=== PATIENT | male | born 1990 | race Caucasian/White ===

== ENCOUNTER 2017-07-09 10:13 | Emergency (ER) | payer OTHER ==
[~2017-07-09] VITALS: Ht 172.7 cm; Wt 110.0 kg
[2017-07-09 10:25] VITALS: BP 120/56; PULSE 83; RESP 16; TEMP 98.2; O2SAT 99
[2017-07-09 12:00] VITALS: O2SAT 96
[2017-07-09] MEDS ORDERED: SODIUM CHLOR 0.9% 1000 ML INJ 1,000 ML IV SCH (12:15)
[2017-07-09] MEDS ORDERED: ONDANSETRON HCL 4 MG/2 ML VIAL IVP ONE (12:15)
[2017-07-09] MEDS ORDERED: MORPHINE SULFATE 4 MG/ML INJ IV PUSH ONE (12:15)
--- NOTE | 2017-07-09 12:22 | PD ---
HPI Chief Complaint: Abdominal Pain Time Seen by Provider: 12:10 Travel History International Travel<30 days: No Contact w/Intl Traveler<30days: No Traveled to known affect area: No History of Present Illness HPI 26-year-old male presents to ED for evaluation of approximately 8 day history of intermittent, crampy right upper quadrant and right flank pain. Described as sharp, maximally 8/10. Accompanied by chills and mild nausea. Pain has begun to be more constant over the last 4 days. Patient denies decreased appetite, vomiting, changes in bowel habits. He states that he has had more frequent urination over the last few days. He denies hematuria or dysuria. He endorses history of cholecystectomy. He treated at home 7 days ago with a single 5 mg Percocet with no improvement of symptoms. He denies frequent alcohol use. Endorses occasionally smoking marijuana. PFSH Social History Tobacco Use: No Allergies-Medications (Allergen,Severity, Reaction): Coded Allergies: No Known Allergies (Unverified , 07/09/17) Review of Systems Except as stated in HPI: all other systems reviewed are Neg Physical Exam Narrative GENERAL: Well-nourished, well-developed obese white male in no acute distress. SKIN: Focused skin assessment warm/dry. HEAD: Normocephalic. EYES: No scleral icterus. No injection or drainage. NECK: Supple, trachea midline. No JVD or lymphadenopathy. CARDIOVASCULAR: Regular rate and rhythm without murmurs, gallops, or rubs. RESPIRATORY: Breath sounds clear and equal bilaterally. No accessory muscle use. GASTROINTESTINAL: Abdomen soft, non-tender, nondistended. Active bowel signs. [place] sign negative. Positive right upper flank tenderness to palpation. MUSCULOSKELETAL: No cyanosis, or edema. BACK: Nontender without obvious deformity. No CVA tenderness. Data Data Last Documented VS Vital Signs Date Time Temp Pulse Resp B/P (MAP) Pulse Ox O2 Delivery O2 Flow Rate FiO2 07/09/17 14:05 77 16 99 Room Air 07/09/17 10:25 98.2 120/56 (77) Orders Orders Complete Blood Count With Diff (07/09/17 11:27) Comprehensive Metabolic Panel (07/09/17 11:27) Urinalysis - C+S If Indicated (07/09/17 11:27) Iv Access Insert/Monitor (07/09/17 11:27) Oxygen Administration (3/13/18 11:27) Oximetry (07/09/17 11:27) Lipase (07/09/17 11:27) Ct Abd/Pel W Iv Contrast(Rout) (07/09/17 12:15) Morphine Inj (Morphine Inj) (07/09/17 12:15) Ondansetron Inj (Zofran Inj) (07/09/17 12:15) Sodium Chlor 0.9% 1000 Ml Inj (Ns 1000 M (07/09/17 12:15) Iohexol 350 Inj (Omnipaque 350 Inj) (07/09/17 13:45) Ed Discharge Order (07/09/17 14:45) Labs Laboratory Tests Test 07/09/17 11:55 07/09/17 12:01 White Blood Count 6.5 TH/MM3 Red Blood Count 5.14 MIL/MM3 Hemoglobin 15.4 GM/DL Hematocrit 44.5 % Mean Corpuscular Volume 86.6 FL Mean Corpuscular Hemoglobin 29.9 PG Mean Corpuscular Hemoglobin Concent 34.5 % Red Cell Distribution Width 13.3 % Platelet Count 282 TH/MM3 Mean Platelet Volume 7.2 FL Neutrophils (%) (Auto) 62.9 % Lymphocytes (%) (Auto) 18.4 % Monocytes (%) (Auto) 12.4 % Eosinophils (%) (Auto) 6.0 % Basophils (%) (Auto) 0.3 % Neutrophils # (Auto) 4.1 TH/MM3 Lymphocytes # (Auto) 1.2 TH/MM3 Monocytes # (Auto) 0.8 TH/MM3 Eosinophils # (Auto) 0.4 TH/MM3 Basophils # (Auto) 0.0 TH/MM3 CBC Comment DIFF FINAL Differential Comment Blood Urea Nitrogen 7 MG/DL Creatinine 0.92 MG/DL Random Glucose 100 MG/DL Total Protein 8.4 GM/DL Albumin 3.6 GM/DL Calcium Level 8.9 MG/DL Alkaline Phosphatase 102 U/L Aspartate Amino Transf (AST/SGOT) 37 U/L Alanine Aminotransferase (ALT/SGPT) 70 U/L Total Bilirubin 0.2 MG/DL Sodium Level 137 MEQ/L Potassium Level 4.1 MEQ/L Chloride Level 102 MEQ/L Carbon Dioxide Level 29.1 MEQ/L Anion Gap 6 MEQ/L Estimat Glomerular Filtration Rate 98 ML/MIN Lipase 58 U/L Urine Color YELLOW Urine Turbidity CLEAR Urine pH 6.0 Urine Specific Onset 1.021 Urine Protein NEG mg/dL Urine Glucose (UA) NEG mg/dL Urine Ketones NEG mg/dL Urine Occult Blood NEG Urine Nitrite NEG Urine Bilirubin NEG Urine Urobilinogen 2.0 MG/DL Urine Leukocyte Esterase MOD Urine RBC 1 /hpf Urine WBC 8 /hpf Urine Squamous Epithelial Cells 2 /hpf Urine Mucus FEW /lpf Microscopic Urinalysis Comment CULT NOT INDICATED MDM Medical Decision Making Medical Screen Exam Complete: Yes Emergency Medical Condition: Yes Differential Diagnosis Nephroureterolithiasis versus biliary colic versus bowel obstruction versus other Narrative Course 26-year-old male presents to ED for evaluation of approximately 8 day history of intermittent, crampy right upper quadrant and right flank pain. Accompanied by chills and mild nausea. Pain has begun to be more constant over the last 4 days. He endorses more frequent urination over the last few days. Endorses history of cholecystectomy. States he is otherwise been his normal health. Vitals reviewed. On exam this is an obese white male in no acute distress. He does have mild right-sided flank and upper quadrant tenderness with the exams otherwise unremarkable. IV was established. Patient was administered 1 L normal saline, 4 mg Zofran, 4 mg CBC, CMP, UA, lipase without concerning abnormalities. CT abdomen and pelvis: No acute findings on abdomen and pelvic CT. Small hiatal hernia. Previous cholecystectomy per radiology read. I discussed the results of the workup with the patient. I educated him about hiatal hernias. I instructed him to follow up with the primary care provider, return for worsening symptoms. He indicated understanding of the instructions and is agreeable to the care plan. He is stable and discharged home. Diagnosis Primary Impression: Abdominal pain Qualified Codes: R10.11 - Right upper quadrant pain Additional Impression: Hiatal hernia Referrals: Primary Care Physician Patient Instructions: Abdominal Pain (ED), General Instructions, Hiatal Hernia (ED) Additional Instructions: Rest, hydrate. Return to normal, gentle activities as tolerated. Eat a bland diet (BRAT) for the next few days and gradually reintroduce new foods. Follow-up with the primary care provider. Return to the ED for worsening symptoms or any urgent or emergent medical condition. Disposition: 01 DISCHARGE HOME Condition: Stable Berenice Burger Jul 09, 2017 12:22
[2017-07-09 12:32] LABS: AUTOMATED NEUTROPHIL # 4.1 TH/MM3 (1.8-7.7); BASOPHIL % 0.3 % (0.0-2.0); EOSINOPHIL # 0.4 TH/MM3 (0-0.4); HEMATOCRIT 44.5 % (39.0-51.0); HEMOGLOBIN 15.4 GM/DL (13.0-17.0); LYMPH % 18.4 % (9.0-44.0); LYMPHOCYTE # 1.2 TH/MM3 (1.0-4.8); MEAN CELL VOLUME 86.6 FL (80.0-100.0); MEAN CORPUSCULAR HEMOGLOBIN 29.9 PG (27.0-34.0); MEAN CORPUSCULAR HGB CONC 34.5 % (32.0-36.0); MEAN PLATELET VOLUME 7.2 FL (7.0-11.0); MONO % 12.4 % (0.0-8.0); MONOCYTE # 0.8 TH/MM3 (0-0.9); NEUT % 62.9 % (16.0-70.0); PLATELET COUNT 282 TH/MM3 (150-450); RED BLOOD COUNT 5.14 MIL/MM3 (4.50-5.90); RED CELL DISTRIBUTION WIDTH 13.3 % (11.6-17.2); WHITE BLOOD COUNT 6.5 TH/MM3 (4.0-11.0)
[2017-07-09 12:34] LABS: BILIRUBIN, URINE NEG (NEG); BLOOD, URINE NEG (NEG); GLUCOSE,URINE NEG (NEG); KETONE, URINE NEG (NEG); MUCUS URINE FEW /lpf (OCC); NITRITE,URINE NEG (NEG); SQUAMOUS EPITHELIAL CELL URINE 2 /hpf (0-5); URINE COLOR YELLOW (YELLW/STRAW); URINE LEUKOCYTE ESTERASE MOD (NEG)
[2017-07-09 12:45] LABS: ALBUMIN 3.6 GM/DL (3.4-5.0); ALT (GPT) 70 U/L (12-78); AST (GOT) 37 U/L (15-37); BICARBONATE 29.1 MEQ/L (21.0-32.0); BLOOD UREA NITROGEN 7 MG/DL (7-18); CALCIUM 8.9 MG/DL (8.5-10.1); CHLORIDE 102 MEQ/L (98-107); CREATININE 0.92 MG/DL (0.60-1.30); GLOMERULAR FILTRATION RATE 98 ML/MIN (>89); GLUCOSE,RANDOM 100 MG/DL (74-106); SODIUM (NA) 137 MEQ/L (136-145)
[2017-07-09 12:47] LABS: ALKALINE PHOSPHATASE 102 U/L (45-117); TOTAL BILIRUBIN ADULT 0.2 MG/DL (0.2-1.0); TOTAL PROTEIN 8.4 GM/DL (6.4-8.2)
[2017-07-09] MEDS ORDERED: IOHEXOL 350 MG/ML 10 ML VIAL (for RAD DIAG) IVCONTRAST ONE (13:45)
[2017-07-09 14:05] VITALS: PULSE 77; RESP 16; O2SAT 99
--- NOTE | 2017-07-09 14:06 | RADRPT ---
EXAM DATE/TIME: 07/09/2017 13:40 [facility] COMPARISON: None. INDICATIONS : <<Right sided abdominal pain>> IV CONTRAST: <<96>> cc Omnipaque 350 (iohexol) IV ORAL CONTRAST: No oral contrast ingested. RADIATION DOSE: <<11.56>> CTDIvol (mGy) MEDICAL HISTORY : None SURGICAL HISTORY : None. ENCOUNTER: Initial ACUITY: 4 - 6 days PAIN SCALE: 5/10 LOCATION: Right flank TECHNIQUE: Volumetric scanning of the abdomen and pelvis was performed. Using automated exposure control and ad justment of the mA and/or kV according to patient size, radiation dose was kept as low as reasonably achievable to obtain optimal diagnostic quality images. DICOM format image data is available electro nically for review and comparison. FINDINGS: Lung bases are clear. No acute findings in the liver, spleen, adrenals, kidneys or pancreas. Previous cholecystectomy. Small hiatal hernia. No free fluid within a bowel obstruction. No adenopathy. No pelvic masses or free fluid. No acute bon y abnormalities. CONCLUSION: 1. No acute findings on abdomen and pelvic CT. Small hiatal hernia.There is previous cholecystectomy. Eliceo Guerrero MD on July 09, 2017 at 14:00 Board Certified Radiologist. This report was verified electronically.
== END 2017-07-09 15:00 | disposition home or self-care (01) ==
LOC: NEPE 10:13
DX: R10.11 Right upper quadrant pain (principal); K44.9 Diaphragmatic hernia without obstruction or gangrene; F12.90 Cannabis use, unspecified, uncomplicated; R35.0 Frequency of micturition
CPT/HCPCS: 74177; 80053; 81001; 83690; 85025; 96374; 96375; 99284; J2270; J2405; J7030; Q9967